=== PATIENT | female | born 1960 | race Caucasian/White ===

== ENCOUNTER 2017-05-20 11:35 | Day surgery (SDC) | payer OTHER ==
[~2017-05-20 11:35] MED LIST: Buffered Lidocaine 0.9% SYRIN* 5 ML/SYR SYRINGE INTRADERM ONE
[2017-05-20] MEDS ORDERED: Buffered Lidocaine 0.9% SYRIN* 5 ML/SYR SYRINGE ONE (12:05)
[2017-05-20] MEDS ORDERED: fentaNYL* 50 MCG/ML 2 ML VIAL (100 MCG VIAL) ONE (13:24)
[2017-05-20] MEDS ORDERED: Midazolam* 1 MG/ML 2 ML VIAL (2 MG) ONE ×2 (13:24)
[2017-05-20] MEDS ORDERED: Ampicillin ADVAN(*) 1 GM in NS 0.9% 50 ML* 50 ML IVPB ONE (15:00)
[2017-05-20 15:10] VITALS: BP 120/68
[2017-05-20] MEDS ORDERED: Propofol* 10 MG/ML 20 ML BTL IV PUSH ONE (15:15)
--- NOTE | 2017-05-21 04:43 | PRO ---
GASTROENTEROLOGY OPERATIVE REPORT: DATE OF PROCEDURE: 05/20/17 OPERATIVE PROCEDURE: Colonoscopy to ileum. SURGEON: Lacy Grewal MD. ANESTHESIA: MAC. PREOPERATIVE DIAGNOSES: 1. Personal history of colon polyps. 2. Last colonoscopy 5 years ago. 3. Chronic diarrhea. 4. History of cecal volvulus with cecectomy. POSTOPERATIVE DIAGNOSES: 1. Normal-appearing anastomotic site. 2. Normal-appearing ileum. 3. Normal cecum, ascending, descending, transverse and sigmoid colon and rectum. Random colon biopsies were obtained to rule out microscopic colitis. RECOMMENDATIONS: 1. We will follow up with path results. 2. The patient's next surveillance colonoscopy should be repeated in 5 years due to personal history of colon polyps. PROCEDURE IN DETAIL: Colonoscopy was explained in detail to the patient. The risks, benefits, complications, alternatives and possibilities of missed lesions were explained and understood. Complications included but were not limited to reaction to anesthesia, aspiration, increased risk of bleeding and perforation. All questions were answered. The patient demonstrated understanding of the conversation. Informed consent was obtained. Next, the patient was brought to the endoscopy suite, placed in the left lateral recumbent position where blood pressure, cardiac, and oxygen monitors were applied. The patient was found to be a fit candidate for MAC anesthesia. After adequate IV sedation was obtained, digital rectal exam was performed which revealed a normal sphincter tone. No palpable masses were appreciated. Next, a standard pediatric Olympus colonoscope was inserted through the rectum, maneuvered all the way to the cecal base where the anastomotic site was visualized. The ileocecal valve was not present due to previous surgery from cecal volvulus and cecal resection. The ileum was intubated and was normal appearing. Subsequently the colonoscope was withdrawn in a fashion that allowed adequate visualization of the bowel. The patient had a good colonoscopy preparation. Random cold forceps biopsies were obtained to rule out microscopic colitis. The cecum, ascending, transverse, descending, sigmoid and rectum were normal appearing. On retroflexion, the rectum was normal as well. Thank you, Dr. Beaver, for allowing us to participate in the care of your patient. If you should have any further questions or concerns, please do not hesitate to contact us. [id number]/[facility] #: [id number]
== END 2017-05-20 15:40 | disposition home or self-care (01) ==
LOC: OR 11:35
PROVIDERS: ATTEND Internal Medicine Gastroenterology
DX: Z86.010 Personal history of colon polyps (principal); R19.7 Diarrhea, unspecified; K52.9 Noninfective gastroenteritis and colitis, unspecified; Z87.891 Personal history of nicotine dependence; Z95.2 Presence of prosthetic heart valve; Z79.01 Long term (current) use of anticoagulants; I49.5 Sick sinus syndrome; I10 Essential (primary) hypertension
CPT/HCPCS: 88305; J2250; J2704; J3010